=== PATIENT | female | born 1970 | race Two or more races ===

== ENCOUNTER 2024-02-27 14:30 | Outpatient (RCR) | payer MEDICAID, SELFPAY ==
--- NOTE | 2024-02-27 15:20 | CTCFLWUP_ITS ---
[facility] [address] [place], [place] [address] FOLLOW-UP NOTE Date: 02/27/2024 MR#: [id number] Name: DORI LEROY : 1970 Dx: C54.1 Malignant neoplasm endometrium identification. Patient with stage Ib FIGO grade 1 underwent GRACIE/BSO 02/24/2021. There was deep 70% myometrial invasion high risk for local recurrence. 5900 centigray to cuff region and 5000 cGy pelvis via VMAT completed for 1222. Last scan available for review 10/18/2022 there was no mediastinal lymphadenopathy 5 mm left lateral pa ra-aortic lymph node 5 mm left common iliac lymph node. Labs 11/27/2023 CBC CMP unremarkable. No recent CA125 noted. Pelvic exam performed today essentially unremarkable. A#1. Stage Ib grade 1 with deep myometrial invasion following GRACIE/BSO 02/24/2021. A#2 Postop XRT. pelvis completed 05/24/2021. A#3. Has been noncompliant in follow-ups with anyone with last pelvic exam done 1-1/2 years ago. Un remarkable today. A#4. Will order CT scan CA125 and review the pathology and check for ER/TX MMR panel studies. A#5. Follow-up in 3 months. Electronically signed by: Agustin Myers M.D. 02/27/2024 3:18 PM
== END 2024-03-14 23:59 | disposition home or self-care (01) ==
LOC: SCTC 14:30
PROVIDERS: PCP Nurse Practitioner Primary Care; Referring Provider Nurse Practitioner Primary Care; Visit Provider Radiology Therapeutic Radiology
DX: Z08 Encounter for follow-up examination after completed treatment for malignant neoplasm (principal); Z85.41 Personal history of malignant neoplasm of cervix uteri; Z90.710 Acquired absence of both cervix and uterus; Z90.722 Acquired absence of ovaries, bilateral; Z91.199 Patient's noncompliance with other medical treatment and regimen due to unspecified reason; Z92.3 Personal history of irradiation
CPT/HCPCS: 99213; G0463

== ENCOUNTER → 2024-04-01 | Outpatient (CLI) | payer MEDICAID, SELFPAY ==
--- NOTE | 2024-04-01 12:00 | XR_ITS ---
Examination: CT chest with intravenous contrast CT abdomen with intravenous contrast CT pelvis with intravenous contrast 2-D coronal and sagittal reconstructions Time of exam: April 01, 2024 1334 hours INDICATIONS: Anemia, unknown etiology, diagnosis malignant neoplasm uterus 3 years ago restaging, 5 mm para-aortic 5 mm common iliac lymph nodes on CT abdomen pelvis 10/18/2022 CTDI: vol (mGy) : 21.5 DLP: (mGycm): 957 Technique: Multiple axial images of the chest, abdomen and pelvis with intravenous contrast, 3.0 mm slice thickness. Images obtained post intravenous injection Isovue 370 60 cc. 2-D sagittal and coronal reconstructions. Low dose protocols were performed. One or more of the following dose reduction techniques were used; automated exposure control, adjustment of the mA and/or KV according to patient size, use of iterative reconstruction technique. Findings: No thoracic aortic aneurysmal dilatation Pulmonary artery segments are not enlarged No pulmonary artery filling defects No paratracheal tracheobronchial or bronchopulmonary adenopathy No pneumonia, pulmonary edema, pleural disease or pulmonary nodules No focal liver or splenic lesions No gallstones No pancreatic or adrenal mass Moderate bilateral renal parenchymal scar formation 4 mm left common iliac lymph node No bowel obstruction Mild thickening of the urinary bladder wall Moderate osteopenia IMPRESSION: No mediastinal lymphadenopathy No pneumonia or pulmonary edema or pleural disease or pulmonary nodules 4 mm left common iliac lymph node
== END | disposition home or self-care (01) ==
PROVIDERS: PCP Nurse Practitioner Primary Care; Referring Provider Radiology Therapeutic Radiology; Visit Provider Radiology Therapeutic Radiology
DX: D50.9 Iron deficiency anemia, unspecified (principal); C54.1 Malignant neoplasm of endometrium
CPT/HCPCS: 71260; 74177; A4649; Q9967

== ENCOUNTER 2024-05-27 14:52 | Outpatient (RCR) | payer MEDICAID, SELFPAY ==
--- NOTE | 2024-05-27 15:32 | CTCFLWUP_ITS ---
[facility] [address] [place], [place] [address] FOLLOW-UP NOTE Date: 05/27/2024 MR#: [id number] Name: DORI LEROY : 1970 Dx: C54.1 Malignant neoplasm of endometrium. Patient with stage Ib FIGO grade 1 underwent GRACIE/BSO 02/24/2021. There was deep 70% myometrial invasion high risk for local recurrence. Underwent 5900 centigray to cuff region and 5000 cGy pelvis via VMAT completed May 13, 2021. CT scan 10/18/2022 there was no mediastinal lymphadenopathy 5 mm left lateral para-aortic lymph node 5 mm left common iliac lymph node Labs at [facility] 11/28/2023 CBC CMP unremarkable.. Most recent CT scan 04/01/2024 no change no new nodules. Patient had no pelvic complaints and examination was essentially unremarkable of her pelvic exam. Assessment. #1.Stage Ib endometrial CA grade 1 GRACIE/BSO 02/24/2021. #2 postop XRT for deep myometrial invasion completed May 13, 2021. #3. No sign of recurrence radiographically or clinically. #4. Patient missed her lab order and this will be ordered before next follow-up in 4 months. Electronically signed by: Agustin Myers M.D. 05/27/2024 3:30 PM
== END 2024-06-11 23:59 | disposition home or self-care (01) ==
LOC: SCTC 14:52
PROVIDERS: PCP Nurse Practitioner Primary Care; Referring Provider Nurse Practitioner Primary Care; Visit Provider Radiology Therapeutic Radiology
DX: Z08 Encounter for follow-up examination after completed treatment for malignant neoplasm (principal); Z85.42 Personal history of malignant neoplasm of other parts of uterus; Z90.710 Acquired absence of both cervix and uterus; Z90.722 Acquired absence of ovaries, bilateral; Z92.3 Personal history of irradiation
CPT/HCPCS: 99213; G0463

== ENCOUNTER → 2024-06-06 | Outpatient (CLI) | payer MEDICAID, SELFPAY ==
--- NOTE | 2024-06-06 09:15 | XR_ITS ---
Examination: Screening digital mammography, bilateral Computer aided detection 3-D breast Tomosynthesis, bilateral Date and time of exam: June 06, 2024 0854 hours Compared to mammograms dating from June 03, 2013 Indication: Screening Technique: Nonmagnified MLO, CC views of the breasts to been obtained, reconstructed from 3-D Tomosynthesis images. R2 computer aided detection program utilized for evaluation of suspicious masses and/or abnormal calcifications. 3-D Tomosynthesis images obtained. Findings: Scattered areas of fibroglandular density. Benign calcifications. No interval suspicious masses Impression: BI-RADS category II: Benign Findings. Recommend 1 year follow-up mammogram.
== END | disposition home or self-care (01) ==
LOC: CDIM 08:47
PROVIDERS: Referring Provider Nurse Practitioner Primary Care; Visit Provider Nurse Practitioner Primary Care
DX: Z12.31 Encounter for screening mammogram for malignant neoplasm of breast (principal); R92.323 Mammographic fibroglandular density, bilateral breasts; R92.1 Mammographic calcification found on diagnostic imaging of breast
CPT/HCPCS: 77063; 77067

== ENCOUNTER 2024-09-25 09:06 | Outpatient (RCR) | payer MEDICAID, SELFPAY ==
--- NOTE | 2024-09-18 14:10 | CTCFLWUP_ITS ---
Patient: DORI LEROY : 1970 Page 4 of 6 FOLLOW UP NOTE DATE OF SERVICE: 09/18/2024 NAME: DORI LEROY ACCOUNT: [id number] : 1970 AGE: 53 INTERVAL HISTORY: Patient doing well. No new complaints. ONCOLOGY HISTORY: DIAGNOSIS: Stage Ib, FIGO grade 1, endometrioid endometrial cancer, status post total abdominal hysterectomy, bilateral salpingo-oophorectomy (02/24/2021) Iron deficiency anemia not responding to oral ferrous sulfate. Status post 2 g of Venofer infusion. Status post 2040 mg of Feraheme infusion. DATE OF DIAGNOSIS: 01/04/2021 STAGE/TNM: Stage Ib, FIGO grade 1, endometrioid endometrial cancer, status post total abdominal hysterectomy, bilateral salpingo-oophorectomy (02/24/2021) TREATMENT HISTORY: Care?Plan Start?Date Cycle Day Intent VENOfer?200mg?IV?weekly 05/14/2019 1 7 Palliative?(other) VENOfer?200mg?IV?wkly 01/29/2020 1 70 Palliative FERAheme 06/08/2020 1 30 Palliative B?12 11/29/2020 1 28 Palliative FERAheme?4?doses 05/30/2021 1 28 Palliative Radiation in adjuvantUnderwent 5900 centigray to cuff region and 5000 cGy pelvis via VMAT completed May HISTORY OF PRESENT ILLNESS: Dori Leroy is a 53-year-old Indonesian speaking female with following history. Since since August 2017 patient has been persistently anemic. She was transfused multiple times at least 6 times according to Ms. Leroy. She received 2 to 3 units of packed cells during each transfusion. She is also taking ferrous sulfate 2 tablets p.o. daily for last 1 year. She denies any bright blood per rectum. She denies any melena. Denies any hemoptysis. Denies any hematemesis. She never had EGD or colonoscopy. She is still menstruating. However her menstrual cycles are once every 2 to 3 months. Her menstrual bleeding is also significantly decreased. 11/22/2018: Hemoglobin 10.5, hematocrit 32.8, WBC 3.5, platelets 184,000. Creatinine 0.59. 01/28/2019: Hemoglobin 11.2, hematocrit 34.3, MCV 91, WBC 5.1, platelet 228,000. Iron saturation 18%, ferritin 36. Hemoglobin 8.0, hematocrit 25.8, MCV 91, WBC 4.5, platelets 174,000. 08/25/2019: Hemoglobin 12.1, MCV 92, WBC 6.0, platelets 162,000. Iron saturation 21%, ferritin 78. 01/01/2020: Hemoglobin 11.9, MCV 89, WBC 5.6, platelets 184,000, iron saturation 14%, ferritin 8, vitamin B12 282, folate more than 20. Patient is on ferrous sulfate 325 mg p.o. twice daily. 01/29/2020?05/12/2020: Patient received 2 g of Venofer infusions. 05/18/2020: Hemoglobin 9.6, MCV 93, iron saturation 11% with ferritin 90. 06/01/2020?06/23/2019: Patient received 2040 mg of Feraheme. 07/07/2020 patient has seen cellular equipment installer Dr. Marck Seth. 07/26/2020: Hemoglobin 11.6, hematocrit 37.6, MCV 98, WBC 4.4, platelets 218,000, iron saturation 20%, ferritin 115. 08 January 2021: Patient has been having vaginal bleeding. 01/18/2021: Patient received 3 units of packed cells. January 29, 2021: She received 3 units of packed cell transfusion. February 05, 2021: She received 2 units of packed cells. 02/20/2021: She received 1 unit of packed cells. 01/04/2021: Ms. Leroy had exploratory laparotomy here at [facility]. Ms. Leroy was found to have severe pelvic adhesions, severe adhesions of the uterus to the anterior abdominal wall. Dr. Seth was unable to visualize adnexa and also was unable to fully visualize the uterus. 02/24/2021: Ms. Leroy had total abdominal hysterectomy and bilateral salpingo- oophorectomy in [place] by Dr. Clarence Foster. 02/28/2020: Patient was admitted to [facility] because of left lower extremity DVT as well as pulmonary embolism. Ms. Leroy was initially treated with IV heparin. Currently she is on Eliquis. 04/06/2021: Patient is started on radiation therapy to the pelvis. 05/12/2021: Hemoglobin 9.0, MCV 78, WBC 2.9, ANC 1.9, platelets 195,000, creatinine 0.74 iron saturation 17%, ferritin 9. 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 amlodipine - 10 mg 1 tab Daily 2. benazepril - 20 mg 1 tab Daily 3. Eliquis - 5 mg 1 tab Twice a Day 4. PARoxetine HCl - 10 mg 1 tab Every day before sleep 5. Vitamin D3 - 2,000 unit 1 Capsule Daily Medications Last Reconciled by Jailyn Arzola MA on 09/18/2024 ALLERGIES: Penicillins REVIEW OF SYSTEMS: A complete 14-point review of systems was performed and is negative except as noted in interval history. PHYSICAL EXAMINATION: VITAL SIGNS: PAIN: 0 - No pain ECOG Performance Status: 0 - Asymptomatic and fully active GENERAL APPEARANCE: Appears well, in no apparent distress, appropriately interactive. HEENT: Normocephalic, no temporal wasting, normal conjunctiva, no scleral icterus, normal hearing, lips without lesions, neck normal range of motion. CARDIOVASCULAR: Not assessed. PULMONARY: Normal respiratory effort, no respiratory distress or use of accessory muscles, speaking in full sentences, no tachypnea. EXTREMITIES: No pedal edema or cyanosis. SKIN: Normal skin appearance. NEUROLOGIC: Alert and oriented x4. PSHYCHIATRIC: Appropriate affect, mood normal, behavior normal, intact thought and speech. LABORATORY DATA: I have personally reviewed and interpreted each of the patient?s relevant lab tests, abnormal findings are below: Date 04/14/20 ??WHITE?BLOOD?COUNT?(Thou/mm3) 5.3 ??RED?BLOOD?COUNT?(Miln/mm3) 3.19?L ??HEMOGLOBIN?(gm/dl) 9.2?L ??HEMATOCRIT?(%) 28.7?L ??PLATELET?COUNT?(Thou/mm3) 195 ??NEUTROPHILS?%,?AUTO?(%) 63 ??LYMPH?%,?AUTO?(%) 27 ??NEUTROPHILS,?AUTO?(Thou/mm3) 3.3 ASSESSMENT/PLAN: 1. Stage Ib, FIGO grade 1, endometrioid endometrial carcinoma . s/p total abdominal hysterectomy and bilateral salpingo-oophorectomy on 02/23/2021. 2. Currently undergoing radiation therapy to the pelvis. 3. Hx of Iron deficiency anemia. 4. Left lower extremity DVT and pulmonary emboli on 02/27/2021 treated with eliquis 5. History of CHF. 6. History of hypertension No eveidence of recurrence Ca125 is normal Ct scan to evaluate for recurrence ORDERS: Order # Description [id number] Comprehensive Metabolic Panel - 12 + CBC with Auto Diff + CA 125 + MD Follow Up [id number] Scan + Abdomen and Pelvis + Chest + With W/O Contrast [id number] Iron Panel + Ferritin + Vitamin B-12 + Folic Acid; Serum [id number] Assay Of Haptoglobin Quant + Lactate Dehydrogenase (LDH) [id number] RETURN TO CLINIC: I reviewed the diagnosis, prognosis, and recommended treatment/procedure options with the patient (and/or their legal marketing sales representative), including the potential benefits, risks, side effects and alternative therapies. We also discussed the option of no treatment and the possibility of clinical trial participation, if applicable. All questions were addressed, and they demonstrated understanding. They provided informed consent to proceed with the proposed plan of care. BILLING AND COMPLIANCE: I reviewed external records from providers outside my specialty as summarized above. I spent a total of 50 minutes on this patient?s care on the day of their visit excluding time spent related to any billed procedures. This time includes time spent with the patient as well as time spent documenting in the medical record, reviewing patients records and tests, obtaining history, placing orders, communicating with other healthcare professionals, counseling the patient, family or caregiver, and/or care coordination for the diagnoses above. Electronically Signed by: Trent Gleason MD T: 2:07 PM CC: Subhash? PCP: Trent Gleason Referring: Trent Gleason This document was completed utilizing speech recognition software. Grammatical errors, random word insertions, pronoun errors, and incomplete sentences are an occasional consequence of this system due to software limitations, ambient noise, and hardware issues. Any formal questions or concerns about the content, text or information contained within the body of this dictation should be directly addressed to the provider for clarification.
== END 2024-10-12 23:59 | disposition home or self-care (01) ==
LOC: SCTC 09:06
PROVIDERS: PCP Nurse Practitioner Primary Care; Referring Provider Internal Medicine Hematology & Oncology; Visit Provider Internal Medicine Hematology & Oncology
DX: C54.1 Malignant neoplasm of endometrium (principal); Z90.710 Acquired absence of both cervix and uterus; Z90.722 Acquired absence of ovaries, bilateral; Z86.2 Personal history of diseases of the blood and blood-forming organs and certain disorders involving the immune mechanism; Z86.718 Personal history of other venous thrombosis and embolism; Z86.711 Personal history of pulmonary embolism; I11.0 Hypertensive heart disease with heart failure; I50.9 Heart failure, unspecified
CPT/HCPCS: 99213; G0463

== ENCOUNTER → 2024-11-11 | Outpatient (CLI) | payer MEDICAID, SELFPAY ==
--- NOTE | 2024-11-11 15:41 | XR_ITS ---
Examination: CT chest with intravenous contrast CT abdomen with intravenous contrast CT pelvis with intravenous contrast CT chest without intravenous contrast,. CT abdomen without intravenous contrast CT pelvis without intravenous contrast 2-D coronal and sagittal reconstructions Time of exam: November 11, 2024, 1553 hrs., Compared with CT chest abdomen pelvis April 01, 2024, January 24, 2022 Indications: Diagnosis iron deficiency anemia CTDI: vol (mGy) : 24 DLP: (mGycm): 1746 Technique: Multiple axial images of the chest, abdomen and pelvis with intravenous contrast, 3.0 mm slice thickness. Images obtained post intravenous injection Isovue 370 60 cc. 2-D sagittal and coronal reconstructions. Low dose protocols were performed. One or more of the following dose reduction techniques were used; automated exposure control, adjustment of the mA and/or KV according to patient size, use of iterative reconstruction technique. Findings: No thoracic aortic aneurysm dilatation No pulmonary artery filling defects No mediastinal lymphadenopathy. No interval pneumonia, pulmonary edema, pleural disease or pulmonary nodules No interval liver or splenic lesions Normal gallbladder normal pancreas normal adrenal glands Stable 4 mm left lateral periaortic lymph node Stable 4 mm left common iliac lymph node No interval abdominal or pelvic lymphadenopathy Normal appendix No bowel obstruction Mild nonspecific colitis pattern unchanged descending colon sigmoid colon Stable mild thickening of the urinary bladder wall Moderate osteopenia Impression: No interval mediastinal lymphadenopathy No interval pneumonia, pulmonary edema, pleural disease or pulmonary nodules Negative for hepatosplenomegaly No interval abdominal or pelvic lymphadenopathy Unchanged mild nonspecific colitis pattern Stable mild thickening of urinary bladder wall
== END | disposition home or self-care (01) ==
LOC: CCTX 15:21 → SCAT 15:26
PROVIDERS: PCP Nurse Practitioner Primary Care; Referring Provider Internal Medicine Hematology & Oncology; Visit Provider Internal Medicine Hematology & Oncology
DX: N32.89 Other specified disorders of bladder (principal); C54.1 Malignant neoplasm of endometrium
CPT/HCPCS: 71270; 74178; A4649; Q9963; Q9967

== ENCOUNTER → 2024-12-18 | Outpatient (CLI) | payer MEDICAID, SELFPAY ==
--- NOTE | 2024-12-18 14:00 | XR_ITS ---
Examination: Bone densitometry Date and time of exam: December 18, 2024, 1406 hours INDICATIONS: Hysterectomy age 51, uterine carcinoma diagnosis Technique: Lumbar spine and hip total bone mineralization values of an calculated. Peak reference and age match control results have been displayed. Findings: Lumbar spine total bone mineralization is 0.899 gm/cm2. This is 1.3 standard deviations below peak reference. This is 0.4 standard deviations below age-matched controls. Hip total bone mineralization is 1.047 gm/cm2 This is 0.6 standard deviations above peak reference. This is 1.3 standard deviations above age-matched controls Impression: There is osteopenia based on lumbar spine measurements. There is normal mineralization based on hip measurements
== END | disposition home or self-care (01) ==
LOC: CDIM 13:35
PROVIDERS: PCP Nurse Practitioner Primary Care; Referring Provider Internal Medicine Hematology & Oncology; Visit Provider Internal Medicine Hematology & Oncology
DX: M85.88 Other specified disorders of bone density and structure, other site (principal); D50.9 Iron deficiency anemia, unspecified; C54.1 Malignant neoplasm of endometrium
CPT/HCPCS: 77080